=== PATIENT | male | born 1935 | race Caucasian/White ===

== ENCOUNTER → 2016-07-01 | Outpatient (CLI) | payer MEDICARE, OTHER ==
[~2016-07-01] MED LIST: ADVIL DPS200 MG PO; AMARYL DPS4 MG PO; ASA325 MG PO; BENADRYL-DPS25 MG PO; BENADRYL-DPS50 MG/ML IV; CUBICIN500 MG IV; DILAUDID P6 MG/30 ML IV; DILAUDID-DPS2 MG/ML IV; EXCEDRIN MIGRA1 EACH PO; GLUCAGON EMERGEN1 MG IM; GLUTOSE 1537.5 GM PO; HUMALOG100 UNIT/1 SQ; HYTRIN5 MG PO; MAALOX DPS30 ML PO; MAXZIDE-25 DPS1 TAB PO; MIRALAX PACKET17 GM PO; NITROSTAT0.4 MG SL; OXY IR DPS5 MG PO; PHENERGAN25 MG/1 M1 IV; PRILOSEC DPS20 MG PO; PROTONIX IV40 MG IV; SENOKOT S1 TAB PO; SODIUM CHLORID250 ML IV; SURFAK DPS240 MG PO; TENORMIN DPS50 MG PO; TENORMIN-DPS25 MG PO; TRIAMTERENE-HC1 EACH PO; TYLENOL DPS325 MG PO; ULTRAM DPS50 MG PO; XARELTO10 MG PO; ZOCOR DPS40 MG PO; ZOSYN 3.373.375 GM/5 IV; [UNRECOGNIZED DRUG - OTHER]; [UNRECOGNIZED DRUG - OTHER] IV; [UNRECOGNIZED DRUG - OTHER] IV
== END | disposition home or self-care (01) ==
LOC: PTH.S 12:00
DX: M25.561 Pain in right knee (principal)

== ENCOUNTER 2016-07-02 10:06 | Inpatient (IN) | payer MEDICARE, OTHER ==
[~2016-07-02] VITALS: Ht 175.3 cm; Wt 128.5 kg
--- NOTE | ~2016-07-02 | OR ---
ADMIT: 07/02/2016 RM/LOC: 520 [facility] MR#: [id number] [address] [address] CARRIEBEANADISRACQUEL MORGAN [address] [place] [address] Operative/Delivery Room Report SEX: M AGE: 80 : 1935 SURGERY DATE: 07/03/2016 SURGEON: Ryan Garcia MD PREOPERATIVE DIAGNOSIS: Septic right total knee arthroplasty. POSTOPERATIVE DIAGNOSIS: Septic right total knee arthroplasty. PROCEDURE: Open irrigation and debridement with extensive synovectomy of the right knee as well as tibial polyethylene exchange and antibiotic bead placement with vancomycin antibiotic absorbable beads. SALESPERSON MEATS: ARTI Deal ANESTHESIA: General. ESTIMATED BLOOD LOSS: 100 mL. TOTAL TOURNIQUET TIME: Approximately 63 minutes. COMPLICATIONS: None. CONDITION: Stable to recovery room. INDICATIONS: The patient is a 80-year-old male, who underwent a right total knee arthroplasty approximately 1 year ago. 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 We saw him in the office. Subsequently aspirated the knee, sent this off as well as some blood work. His blood work showed a peripheral white count of 7.3, C-reactive protein of 17.6. The joint fluid showed 37,000 white blood cells, 10,000 red blood cells, 86% polys. Gram stain showed many white cells and no bacteria identified. Cultures were obtained, and on day 1, these started growing out some gram- positive cocci. At that time, we admitted the patient to the hospital, got an Infectious Disease consult as well as Internal Medical consult. Started him on vancomycin IV. The day before the patient had had his knee aspirated and actually said his knee felt quite a bit better. We did explain to him that with the bacteria growing in here probably imperative to try to take him back to the operating room for treatment of this. At this point since he had less than a week of symptoms and he is about a year off from the time of his total knee, we talked to him about trying to save the prosthesis by doing an open irrigation and debridement, polyethylene exchange, antibiotic bead placement. He did want to go ahead and proceed with this. Once again the procedure as well as risks and benefits were discussed with the patient at length. Questions were answered and he agreed to proceed. DESCRIPTION OF PROCEDURE: After informed was obtained, the patient was taken ADMIT: 07/02/2016 RM/LOC: 520 [facility] MR#: [id number] [address] [address] RACQUEL RAMIREZ [address] [place] [address] Operative/Delivery Room Report SEX: M AGE: 80 : 1935 to the operating room, placed on the operative table in supine position. General anesthetic was administered. After adequate general anesthesia, a tourniquet was placed on right upper thigh, and the right lower extremity was prepped and draped in usual sterile fashion. We did use a scrub Betadine prep. We did gravity exsanguination, inflated the tourniquet to 300 mmHg. We then entered the knee through a midline incision. Made a bit of a medial flap here. We then entered the knee joint through a medial parapatellar incision. Upon entering the knee joint, there was still fairly large amount of fluid in the knee. Once this was completed, we did a little bit of a medial release of the soft tissues off the proximal tibia and then we did an extensive synovectomy. We did use Bovie electrocautery large rongeur for this purpose. Once we felt a good complete synovectomy, we used the tool to remove the polyethylene from the tibial tray, this was then removed without difficulty. The components were all well fixed. We copiously irrigated the knee at this time with 6 L of bacitracin solution followed by an additional 3 L of plain solution. Once this was completed, we then exchanged the tibial polyethylene placed a size 5, 10 mm thickness into the tibial tray impacted and locked this into position. We irrigated the knee with an additional 2 L of fluid at this point. We then placed a medium Hemovac drain. We also then placed 20 mL of vancomycin impregnated antibiotic beads in the knee joint. We placed these in the suprapatellar region and the gutters. Once this was completed, we then reapproximated the medial parapatellar incision using #1 PDS in a figure-of- eight fashion. The wound was once again copiously irrigated. The subcutaneous tissues were then closed using 2-0 Vicryl in simple interrupted fashion and the skin with skin paco. A sterile compressive dressing was then applied consisting of Xeroform, plain gauze, ABDs, Webril, and Ari wrap from the foot to the thigh. The patient was then transferred to recovery room in good condition. Ryan Garcia MD/ antonietta JOB #: [id number] CC: Ryan Garcia, Attending Physician Fior Horta, Family Physician
--- NOTE | ~2016-07-02 | ECH ---
Transthoracic Echocardiography Report (TTE) Demographics Patient Name RACQUEL RAMIREZ Date of Study 07/04/2016 D Patient Number [id number] Visit Number [id number] Date of 1935 Room Number 520 Accession Number [id number] Gender Male Age 80 year(s) Referring Radha Hicks Trucking Supervisor Mallory Taylor [facility] Physician Adriane Rascon MD Physician Interpreting Prakash Kingsley Assembler Carbon Brushes Physician MD Supervising Ordering Physician Adriane Rascon MD, MD/MLP Nurse Stress Quality Lab Technician Conclusions Summary Technically fair exam. The estimated left ventricular ejection fraction is 60-65%. The left ventricle is mildly dilated . Mild left ventricular hypertrophy. Diastolic assessment reveals Grade I diastolic dysfunction. Aortic valve sclerosis without hemodynamically significant stenosis, Mild tricuspid regurgitation by color Doppler. There is mild pulmonary hypertension. The pulmonary pressure (RVSP) is 44mmHg. No significant regurgitant valvular abnormalities. Procedure Type of Study TTE procedure:Echo Complete SF. Procedure Date Date: 07/04/2016 Start: 02:36 PM Technical Quality: Fair Additional Indications:septic knee Appropriate Use Criteria: 2 Height: 69 inches Weight: 271 pounds BSA: 2.35 m Rhythm: Within normal limits HR: 69 bpm BP: 139/63 mmHg M-Mode/2D Measurements LV Diastolic Dimension: 5.84 cm LV Systolic Dimension: 4.59 cm LV Septum Diastolic: 1.13 cm LV PW Diastolic: 1.34 cm AO Root Dimension: 2.81 cm Cardiac Output: 5.9 l/min LA Dimension: 4.8 cm Cardiac Index: 2.51 l/min*m RV Diastolic Dimension: 4.6 cm LA volume index: 22 ml/m LVOT: 2.13 cm LVOT VTI: 24.01 cm RV Base: 4.3 cm LV Stroke volume: 85.51 ml RV Mid: 2.8 cm LV Stroke volume index: 36.39 ml/m RV Length: 7.3 cm Doppler Measurements AV Peak Velocity: 2 m/s MV Peak E-Wave: 0.65 m/s AV Peak Gradient: 16 mmHg MV Peak A-Wave: 0.83 m/s AV Mean Gradient: 8.37 mmHg MV E/A Ratio: 0.79 LVOT Peak Velocity: 1.18 m/s MV P1/2t: 58.9 msec AV Area (Continuity):2.32 cm MV Deceleration Time: 211.3 msec TR Velocity:3.12 m/s MV Area (PHT): 3.74 cm TR Gradient:38.94 mmHg PV Peak Velocity: 1.2 m/s Estimated RAP:5 mmHg PV Peak Gradient: 5.79 mmHg Estimated RVSP: 44 mmHg Estimated PASP: 43.94 mmHg RA Area: 16.27 cm Findings Left Ventricle The left ventricle is moderately dilated . Mild to moderate left ventricular hypertrophy. Diastolic assessment reveals Grade I diastolic dysfunction. Right Ventricle Normal right ventricle structure and function. Left Atrium Normal left atrial size. Right Atrium Normal right atrial size. Mitral Valve Normal mitral valve structure and function. Mild mitral regurgitation by color Doppler. Aortic Valve The aortic valve was not well imaged but appears sclerotic with a mean gradient of 8mmHg. There is no aortic regurgitation by color Doppler. Tricuspid Valve Normal appearing tricuspid valve. Mild tricuspid regurgitation by color Doppler. There is mild pulmonary hypertension. The pulmonary pressure (RVSP) is 44mmHg. Pulmonic Valve Normal pulmonic valve structure and function. Pericardial Effusion No evidence of pericardial effusion. Miscellaneous Visualized portions of the aortic root and ascending aorta appear normal in size. Pleural Effusion No evidence of pleural effusion. Contractility Score LV regional wall motion:(0-Non visualized 1-Normal 2-Hypokinesis 3-Akinesis 4-Dyskinesis 5-Aneurysm) Signature
[~2016-07-02 10:06] MED LIST changes: -CUBICIN500 MG IV; -TRIAMTERENE-HC1 EACH PO; -XARELTO10 MG PO
--- NOTE | 2016-07-05 08:58 | HP ---
ADMIT: 07/02/2016 RM/LOC: 520 [facility] MR#: [id number] [address] [address] RACQUEL RAMIREZ Elie [address] [place] [address] Pre-OP History and Physical SEX: M AGE: 80 : 1935 DATE OF SERVICE: REASON FOR ADMISSION: Right knee infection. HISTORY OF PRESENT ILLNESS: This is a 80-year-old male, who presented to Dr. Garcia's office two days ago on 07/01/2016 with complaints of right knee pain with range of motion and walking. He has a history of right total knee arthroplasty done by Dr. Garcia in July 2015. For the past six months, he has been complaining of a gravelly crunching feeling in his right knee which does not significantly limit his activities. Dr. Garcia suggested that he follow up with him if the pain increases. Then, on last 06/27/2016, he was doing housework and was kneeling on his knees, when he went to stand up, he felt pressure in both knees and pain later on in the day in his right knee. He then was seen at Dr. Garcia's office 07/01/2016, for this right knee pain. Dr. Garcia aspirated his right knee, and Gram-stain showed gram-positive cocci suggestive of Streptococcus. He had the patient admitted to [facility] and plans on right knee washout today on 07/03/2016. He is also receiving IV antibiotics and consultation for medical clearance. Past medical history, surgical history, social history, family history, and review of systems have been discussed in the history and physical of Dr. Stubbs and will not be repeated here. PHYSICAL ASSESSMENT: There is moderate pain to palpation and with range of motion on the right knee. No erythema or warmth is noted. There is a palpable effusion of the right knee and minimal swelling in the right lower extremity, but no bruising. Neurovascular status is at baseline - there is some numbness in the right foot due to diabetic neuropathy which is known per the patient. ASSESSMENT AND PLAN: Right septic knee with previous right total knee arthroplasty. Dr. Garcia will be performing a right knee incision and debridement as well as a poly exchange from the previous total knee arthroplasty today on 07/03/2016. Risks, benefits, and alternatives were discussed with the patient and he elected to proceed. We will continue IV antibiotics and start range of motion activity after surgery. ARTI Deal / Ryan Garcia MD / antonietta JOB #: [id number] CC: Ryan Garcia, Attending Physician Fior Horta, Family Physician
[2016-07-05] MEDS ORDERED: TRIAMTERENE-HC1 EACH PO (20:55)
[2016-07-05] MEDS ORDERED: AMARYL DPS4 MG PO (20:55)
[2016-07-05] MEDS ORDERED: MIRALAX PACKET17 GM PO (20:55)
[2016-07-05] MEDS ORDERED: PRILOSEC DPS20 MG PO (20:55)
[2016-07-05] MEDS ORDERED: HYTRIN5 MG PO (20:55)
[2016-07-05] MEDS ORDERED: XARELTO10 MG PO (20:56)
[2016-07-05] MEDS ORDERED: ULTRAM DPS50 MG PO (20:56)
[2016-07-05] MEDS ORDERED: TENORMIN-DPS25 MG PO (20:56)
[2016-07-05] MEDS ORDERED: ZOCOR DPS40 MG PO (20:56)
[2016-07-05] MEDS ORDERED: SENOKOT S1 TAB PO (20:56)
[2016-07-05] MEDS ORDERED: OXY IR DPS5 MG PO (20:56)
[2016-07-05] MEDS ORDERED: CUBICIN500 MG IV (20:57)
--- NOTE | 2016-07-12 12:45 | CO ---
ADMIT: 07/02/2016 RM/LOC: 520 [facility] MR#: [id number] [address] [address] RACQUEL GIBBONS [address] [place] [address] Consultation SEX: M AGE: 80 : 1935 DATE OF CONSULTATION: 07/03/2016 ATTENDING PHYSICIAN: Ryan Garcia CONSULTING PHYSICIAN: Eleanor Forrest MD REASON FOR CONSULT: Right knee prosthetic joint infection. HISTORY OF PRESENT ILLNESS: Mr. Gibbons is a pleasant 80-year-old man, who presented to Dr. Garcia's office on 07/01 with complaint of right knee pain, swelling, and warmth which started around one week back. It was associated with fever and chills. His original right total knee replacement surgery was in July of 2015. Dr. Garcia aspirated the fluid, which was turbid and had 37,880 WBCs with 86% polymorphonuclear WBCs. The synovial fluid culture is growing gram-positive cocci from the broth possibly Streptococcus species, pending identification. At present, the patient only complains of right knee swelling and pain. He is scheduled to go for irrigation and debridement along with poly exchange today. PAST MEDICAL HISTORY: 1. Type 2 diabetes mellitus. 2. Hypertension. 3. Gastroesophageal reflux disease. 4. Hyperlipidemia. 5. BPH. PAST SURGICAL HISTORY: 1. Cholecystectomy. 2. Umbilical hernia repair. 3. Right total knee replacement. SOCIAL HISTORY: He denies any current use of alcohol, tobacco, or recreational drug use. He lives at home with his . FAMILY HISTORY: Family history significant for cancer in his brother. ALLERGIES: NO KNOWN DRUG ALLERGIES. MEDICATIONS: Current medications include: 1. Hytrin. 2. Maxzide. 3. Protonix. 4. Senokot. 5. Tenormin. 6. Zocor. 7. Vancomycin 1.75 g once daily. 8. ceftriaxone. REVIEW OF SYSTEMS: A 10-point review of systems negative except as mentioned ADMIT: 07/02/2016 RM/LOC: 520 [facility] MR#: [id number] [address] [address] RACQUEL GIBBONS [address] [place] [address] Consultation SEX: M AGE: 80 : 1935 in HPI. PHYSICAL EXAMINATION: VITAL SIGNS: Current temperature is 98.8, T-max 101.1, heart rate 69, respirations 18, blood pressure 106/56, 90% on room air. GENERAL: No acute distress. HEENT: Head is normocephalic and atraumatic. Extraocular movements intact. He has cold sore on his lower lip. CHEST: Decreased breath sounds bilaterally. No wheezes, rales, or rhonchi. CARDIOVASCULAR: S1 and S2 heard. Regular rate and rhythm. ABDOMEN: Soft, obese, nontender. There is a midline laparotomy incision. MUSCULOSKELETAL: Right knee is warm, swollen, and tender to palpation. No erythema noted. LABORATORY DATA REVIEW: Per HPI. CBC shows white count of 6.9, hemoglobin 12.4, and platelets of 184. CRP 17.60. ASSESSMENT: 1. Right knee prosthetic joint infection. Synovial fluid culture is growing gram-positive cocci, likely streptococcal species. At this time, I will continue him on vancomycin and stop the ceftriaxone as he does not need any gram-negative coverage. Plan is for irrigation and debridement today with poly exchange. We will follow up on final culture results. 2. Type 2 diabetes mellitus. 3. Obesity. 4. Hypertension. 5. Benign prostatic hypertrophy. Thank you for the consult and I will continue to follow the patient. Eleanor Forrest MD/ antonietta JOB #: [id number] CC: Ryan Garcia, Attending Physician Fior Horta, Family Physician
--- NOTE | 2016-07-23 11:53 | DS ---
ADMIT: 07/02/2016 RM/LOC: 520 [facility] MR#: [id number] [address] [address] RACQUEL RAMIREZ [address] [place] [address] General Discharge Summary SEX: M AGE: 80 : 1935 ADMISSION DATE: 07/02/2016 DISCHARGE DATE: 07/05/2016 REASON FOR ADMISSION: Right knee infection, status post right total knee arthroplasty done in July of 2015. PREOPERATIVE DIAGNOSIS: Septic right total knee arthroplasty. POSTOPERATIVE DIAGNOSIS: Septic right total knee arthroplasty. PROCEDURE PERFORMED: Open irrigation and debridement with extensive synovectomy of the right knee as well as tibial polyethylene exchange and antibiotic bead placement with vancomycin, antibiotic observable beads. SURGEON: Dr. Ryan Garcia. PAINTING DEPARTMENT SUPERVISOR: ARTI Deal ANESTHESIA: General. ESTIMATED BLOOD LOSS: 100 mL. COMPLICATIONS: None. ACTIVE MEDICAL PROBLEMS: 1. Type 2 diabetes mellitus. 2. Hypertension. 3. Gastric reflux disease. 4. Hyperlipidemia. 5. BPH. HOSPITAL COURSE: The patient was admitted on 07/02/2016 with complaints of right knee pain suggestive of septic right knee status post total knee arthroplasty. He was taken to surgery for an open irrigation and debridement on 07/03/2016, which was done by Dr. Garcia without any complications. The patient tolerated the procedure well. The patient was put on IV antibiotics before the procedure and remained on IV antibiotics after the procedure. He started physical therapy right away on postoperative day #1 and participated well with physical therapy with range of motion exercises of his knee. On postoperative day #2, the Hemovac placed within the knee compartment was removed. He also had a PICC line inserted on postoperative day #2, and tolerated this well. On 07/05/2016, the patient was discharged with plans to follow up with Dr. Garcia in 2 weeks as well as plans to continue physical therapy per total knee arthroplasty protocol. DISCHARGE MEDICATIONS: 1. MiraLAX 17 g everyday. 2. Omeprazole 20 mg everyday. 3. Glimepiride 4 mg twice daily. ADMIT: 07/02/2016 RM/LOC: 520 [facility] MR#: [id number] [address] [address] RACQUEL RAMIREZ [address] [place] [address] General Discharge Summary SEX: M AGE: 80 : 1935 4. Terazosin 5 mg everyday. 5. Triamterene hydrochlorothiazide 37.5/25 mg everyday. 6. Atenolol 25 mg everyday. 7. Simvastatin 40 mg everyday. 8. Xarelto 10 mg everyday for 22 days. 9. Senokot one tablet twice daily as needed. 10.Tramadol 50 mg one to two tablets every 6 hours as needed for pain. 11.Oxycodone 5 mg one to two tablets every 4 hours as needed for breakthrough pain. 12.Daptomycin 770 mg everyday for six weeks IV. DISCHARGE INSTRUCTIONS: The patient was discharged with plans for outpatient physical therapy per total knee arthroplasty protocol for his right septic knee infection. Follow up in the Orthopedic office in [address] Garcia for wound check and progress. Follow up with primary care as directed. ARTI Deal / Ryan Garcia MD / antonietta JOB #: [id number] CC: Ryan Garcia MD, Attending Physician Fior Horta MD, Family Physician
--- NOTE | 2016-07-29 08:26 | CO ---
ADMIT: 07/02/2016 RM/LOC: 520 [facility] MR#: [id number] [address] [address] PILO RAMIREZ [address] [place] [address] Consultation SEX: M AGE: 80 : 1935 DATE OF CONSULTATION: 07/02/2016 ATTENDING PHYSICIAN: Ryan Garcia CONSULTING PHYSICIAN: Khalif Stubbs MD REASON FOR CONSULT: Medical comanagement. HISTORY OF PRESENT ILLNESS: Pilo is a very pleasant, 80-year-old white male, patient normally seen over at [facility], who presented to Dr. Garcia's office on 07/01/2016 with ongoing right knee pain, swelling, warmth, and just generally malaise and constitutional symptoms over the last 4-5 days. He has a history of right total knee replacement in July of 2015, joint aspiration with suspicious for septic knee on 07/01/2016, and Gram stain and culture has come back positive for gram-positive cocci suggestive for streptococcal infection. He is being admitted for intravenous antibiotics and I have been consulted for surgical clearance prior to washing the knee out with Dr. Garcia. PAST MEDICAL HISTORY: Pilo's past medical history is remarkable for diabetes mellitus type 2. His control is unknown. He states that he is borderline, though an A1c here in his hospital chart shows an A1c clearly in the mid 7's making this not exactly a borderline case. Additional past medical history includes hypertension, hyperlipidemia, gastroesophageal reflux disease, and BPH. PAST SURGICAL HISTORY: Status post cholecystectomy. He states he had a previous umbilical hernia repair with mesh and that the mesh had subsequently failed and no further intervention has been undertaken, and lastly a right total knee replacement. SOCIAL HISTORY: He is a former smoker. Denies any drug use. His is with him in the hospital room today. He is very circumstantial, as is his on his history. Difficult to obtain a simple answer to any of the questions that I pose to him. FAMILY HISTORY: Noncontributory. REVIEW OF SYSTEMS: Again, he has had some generalized malaise, just generally feeling poorly, pain in the knee, swelling in the knee, chest pain with exertion. He does note some mild dyspnea with exertion and climbing stairs. He never had a heart attack, stents, or known coronary history. He denies any strokes. Review of systems is as per HPI. All others reviewed and were negative. PHYSICAL EXAMINATION: VITAL SIGNS: His blood pressure is 138/84, pulse 82, respirations 18, temp 99.3, O2 saturation is 96% on room air. GENERAL: He is centrally obese. No acute distress. Again very circumstantial with his answers to questioning today, but not in any acute ADMIT: 07/02/2016 RM/LOC: 520 [facility] MR#: [id number] [address] [place] [address] PILO RAMIREZ [facility] [place] [address] Consultation SEX: M AGE: 80 : 1935 distress and otherwise appropriate. HEENT: Normocephalic, atraumatic. HEART: Regular rate and rhythm. No murmurs, gallops, or rubs. LUNGS: Clear to auscultation bilaterally. ABDOMEN: Obese, soft, nontender, and nondistended. He has several abdominal scars including a right subcostal and a fairly large midline laparotomy incision. EXTREMITIES: No cyanosis, clubbing, or edema. His right knee has a 2 to 3+ effusion, is warm, and has a previous knee replacement scar noted. LABORATORY AND X-RAY DATA: Labs from 07/01/2016 were reviewed today. A CRP at that time was 17.6. CBC showed a white count of 7.3, hemoglobin 12.6, and a platelet of 173. Crystal analysis on the knee fluid was negative. Synovial fluid showed 10,000 RBCs per high-powered field, 37,900 WBCs per high-powered field, and his cultures growing out gram-positive cocci, suspicious for Streptococcus. Additional lab testing ordered this evening include CBC, CMP, hemoglobin A1c, chest x-ray, EKG. ASSESSMENT: 1. Septic right knee with previous right knee replacement. 2. Diabetes mellitus type 2, control unknown. 3. Hypertension. 4. Hyperlipidemia. 5. Gastroesophageal reflux disease. 6. Benign prostatic hypertrophy. 7. Abdominal obesity. PLAN: Again, we are initiating a cardiac clearance workup this evening. Barring any major abnormalities, we will clear him for surgery. Obviously, we will review his EKG, chest x-ray, and labs once those become available. I have started him on Accu-Cheks and we will start him on a supplemental insulin scale. I am going to hold his glimepiride at this time, but we will continue his MiraLax, omeprazole, terazosin, atenolol, simvastatin, and Dyazide for the time being. Khalif Stubbs MD/ antonietta JOB #: [id number] CC: Ryan Garcia, Attending Physician Fior Horta, Family Physician
--- NOTE | 2016-08-27 12:25 | DS ---
ADMIT: 07/02/2016 RM/LOC: 520 [facility] MR#: [id number] [address] [id number] JAMES RACQUEL Elie [address] [place] [address] General Discharge Summary SEX: M AGE: 80 : 1935 ADMISSION DATE: 07/02/2016 DISCHARGE DATE: 07/05/2016 DATE OF SURGERY: 07/03/2016 REASON FOR ADMISSION: Right knee pain status post right total knee arthroplasty, septic right total knee arthroplasty. HISTORY OF PRESENT ILLNESS: A 80-year-old male presented to Dr. Garcia's office on 07/01/2016, with complaints of right knee pain with range of motion and walking. He has a history of a right total knee arthroplasty done by Dr. Garcia in July 2015 for the past 6 months. He has been complaining of crunching feeling in his right knee, which does not significantly limit his activities. Dr. Garcia suggested that he follow up with him if the pain increases then on , 06/27/2016, he was doing housework and kneeling on his knees. When he want to standing up, he felt pressure in both knees and pain later on in the day in his right knee. He then was seen at Dr. Garcia's office 07/01/2016 for this right knee pain. Dr. Garcia aspirated his knee, and Gram stain showed gram-positive cocci suggestive of streptococcus. He had the patient admitted to [facility], and the plan on a right knee washout and poly exchange were discussed and decided upon. He was also receiving IV antibiotics and consultation for medical clearance. PREOPERATIVE DIAGNOSIS: Septic right total knee arthroplasty. POSTOPERATIVE DIAGNOSIS: Septic right total knee arthroplasty. PROCEDURE PERFORMED: Open irrigation and debridement with extensive synovectomy of the right knee as well as tibial polyethylene exchange and antibiotic bead placement with vancomycin antibiotic absorbable beads. SURGEON: Ryan Garcia MD. LACE CUTTER: ARTI Deal COMPLICATIONS: None. ESTIMATED BLOOD LOSS: 100 mL. ANESTHESIA: General. PAST MEDICAL HISTORY: 1. 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 2. Type 2 diabetes. 3. Essential primary hypertension. 4. Hyperlipidemia. 5. Obesity. 6. Gastroesophageal reflux disease without esophagitis. 7. Benign prostatic hyperplasia with lower urinary tract. ADMIT: 07/02/2016 RM/LOC: 520 [facility] MR#: [id number] [address] [id number] RACQUEL RAMIREZ [address] [place] [address] General Discharge Summary SEX: M AGE: 80 : 1935 8. Nicotine. 9. BMI above 39. HOSPITAL COURSE: The patient was admitted on 07/02/2016, discharged on 07/05/2016 following stay of 3 days. While admitted, the patient was seen by Infectious Disease as well as General Medical to follow the patient and help with correct antibiotic for the patient. Dr. Forrest kept on with IV vancomycin because the synovial fluid was growing gram-positive cocci likely streptococcal species and took him off the ceftriaxone because he did not need any gram-negative coverage. Overall, the patient handled the irrigation and debridement and poly exchange well. Pain is well managed with oral analgesics as well as intravenous analgesics from time to time. The patient was seen by Orthopedics each day there in the hospital as well. They attended occupational and physical therapy sessions and there were no questions from either libertarian. Prior to discharge, the patient met with Social Work Services to discuss discharge disposition and home with home health care help as decided upon. While in the hospital, they were closely followed like I said with Infectious Disease. Vital signs stable and within normal limits. Hemoglobin fell to a low of 10.7. Prior to discharge, the patient's questions and concerns were answered. They were asked to contact orthopedic clinic prior to the first followup appointment if they had any questions or concerns. DISCHARGE MEDICATIONS: 1. Amaryl 4 mg p.o. b.i.d. 2. Hytrin 5 mg p.o. daily. 3. Maxzide 1 tab p.o. daily. 4. MiraLAX 17 g p.o. daily. 5. Omeprazole 20 mg p.o. daily. 6. Xarelto 10 mg p.o. daily for 12 days. 7. Zocor 40 mg p.o. daily. 8. Senokot tab p.o. b.i.d. p.r.n. DISCHARGE DIAGNOSIS: Status post septic right total knee arthroplasty. DISCHARGE INSTRUCTIONS: The patient is going to follow up with ID on an outpatient basis in the first couple weeks. They are also going to follow up in Orthopedic Clinic in 2 weeks following date of surgery. They are asked to contact the Orthopedic Clinic with any questions prior to the first followup appointment. ARTI Hdz / Ryan Garcia MD / walterl JOB #: [id number] CC: Ryan Garcia MD, Attending Physician Fior Horta MD, Family Physician
== END 2016-07-05 17:30 | disposition home health service (06) | DRG 468 ==
LOC: 5MS 16:36
PROVIDERS: ADMIT Orthopaedic Surgery
PROC: 3E0U029 Introduction of Other Anti-infective into Joints, Open Approach (ICD-10-PCS; principal; 2016-07-03)
PROC: 0SPV0JZ Removal of Synthetic Substitute from Right Knee Joint, Tibial Surface, Open Approach (ICD-10-PCS; principal; 2016-07-03)
PROC: 0SRV0JZ Replacement of Right Knee Joint, Tibial Surface with Synthetic Substitute, Open Approach (ICD-10-PCS; principal; 2016-07-03)
PROC: 0SBC0ZZ Excision of Right Knee Joint, Open Approach (ICD-10-PCS; principal; 2016-07-03)
PROC: 02HV33Z Insertion of Infusion Device into Superior Vena Cava, Percutaneous Approach (ICD-10-PCS; 2016-07-05)
DX: T84.53XA Infection and inflammatory reaction due to internal right knee prosthesis, initial encounter (principal); E11.9 Type 2 diabetes mellitus without complications; I10 Essential (primary) hypertension; E78.5 Hyperlipidemia, unspecified; E66.9 Obesity, unspecified; K21.9 Gastro-esophageal reflux disease without esophagitis; N40.0 Benign prostatic hyperplasia without lower urinary tract symptoms; Z87.891 Personal history of nicotine dependence; Z68.39 Body mass index [BMI] 39.0-39.9, adult